=== PATIENT | male | born 1960 | race Caucasian/White ===

== ENCOUNTER 2022-08-04 17:12 | Emergency (ER) | payer OTHER ==
[~2022-08-04] VITALS: Ht 182.8 cm; Wt 104.3 kg
[2022-08-04] MEDS ORDERED: CEPHALEXIN500 M1 PO (20:31)
== END 2022-08-04 20:52 | disposition home or self-care (01) ==
LOC: ED 17:12
DX: S61.305A Unspecified open wound of left ring finger with damage to nail, initial encounter (principal); Z88.5 Allergy status to narcotic agent; W26.9XXA Contact with unspecified sharp object(s), initial encounter; Y93.89 Activity, other specified; Y92.89 Other specified places as the place of occurrence of the external cause; Y99.8 Other external cause status